=== PATIENT | female | born 1950 | race Caucasian/White ===

== ENCOUNTER 2024-01-25 12:54 | Outpatient (CLI) | payer MEDICARE | END 2024-01-25 12:55 | disposition home or self-care (01) | LOC: SCSMRI 12:54 | PROVIDERS: ATTEND Psychiatry & Neurology Neurology | DX: R25.1 Tremor, unspecified (principal); R90.89 Other abnormal findings on diagnostic imaging of central nervous system | CPT/HCPCS: 70551 ==

== ENCOUNTER 2024-05-24 08:34 | Outpatient (CLI) | payer MEDICARE | END 2024-05-24 08:35 | disposition home or self-care (01) | LOC: NM 08:34 | PROVIDERS: ATTEND Psychiatry & Neurology Neurology | DX: G20.C Parkinsonism, unspecified (principal) | CPT/HCPCS: 78803; A9584 ×2 ==